=== PATIENT | female | born 1970 | race Caucasian/White ===

== ENCOUNTER 2018-04-25 10:27 | Inpatient (IN) | payer MEDICAID, OTHER ==
[2018-04-25 10:49] VITALS: BMI 20.1
[2018-04-25] MEDS ORDERED: Multivitamin (MVI) 10 ML, Thiamine 100 MG, Folic Acid 1 MG in Sodium Chloride 0.9% 1,00... IV ONE (10:59)
[2018-04-25 11:31] LABS: BASO # 0.02 K/mm3 (0.0-2.0); BASO % 0.3 % (0.0-3.0); GRAN # 5.15 (1.4-6.5); GRAN % 82.5 % (50.0-68.0); HEMOGLOBIN 12.7 g/dL (12.0-16.0); LYMPH # 0.6 (1.2-3.4); LYMPH % 9.8 % (22.0-35.0); MEAN CELL VOLUME 88.1 fl (80.0-105.0); MEAN CORPUSCULAR HEMOGLOBIN 31.6 pg (25.0-35.0); MEAN CORPUSCULAR HGB CONC 35.9 g/dl (31.0-37.0); MEAN PLATELET VOLUME 9.6 fl (7.0-11.0); MONO # 0.5 (0.1-0.6); MONO % 7.4 % (1.0-6.0); RBC 4.02 10^6/uL (3.5-6.1); RED CELL DISTRIBUTION WIDTH 14.3 % (11.5-14.5); WHITE BLOOD COUNT 6.2 10^3/ul (4.5-11.0)
[2018-04-25 11:40] LABS: ALB/GLOB RATIO 1.7 (1.1-1.8); ALBUMIN 4.5 g/dL (3.0-4.8); AMYLASE 53 U/L (35-125); CALCIUM 9.1 mg/dL (8.4-10.5); GFR AFRICAN-AMERICAN > 60; GFR NON-AFRICAN AMERICAN > 60; LIPASE 123 U/L (23-300)
[2018-04-25 11:41] LABS: ALT/SGPT 44 U/L (7-56); AST/SGOT 57 U/L (14-36); BLOOD UREA NITROGEN 12 mg/dL (7-21)
[2018-04-25 12:37] LABS: URINE BILIRUBIN NEGATIVE (NEGATIVE); URINE BLOOD MODERATE (NEGATIVE); URINE COLOR YELLOW (YELLOW); URINE GLUCOSE (UA) NEGATIVE (NEGATIVE); URINE LEUKOCYTE ESTERASE LARGE Leu/uL (NEGATIVE); URINE PROTEIN TRACE mg/dL (<30 mg/dL); URINE UROBILINOGEN 0.2 E.U./dL (<1 E.U./dL)
[2018-04-25 12:38] LABS: URINE APPEARANCE CLEAR (CLEAR)
[2018-04-25] MEDS ORDERED: cefTRIAXone 1 gm 1 GM/100 ML BAG IVPB STA (12:40)
[2018-04-25 12:45] LABS: URINE BACTERIA SMALL (NEG); URINE RBC 0 - 2 /hpf (0-2)
--- NOTE | 2018-04-25 12:49 | ED PDOC ---
Arrival/HPI - General Historian: Patient <Jt Delong A - Last Filed: 04/25/18 12:54> <Guera Welch - Last Filed: 04/25/18 19:38> - General Chief Complaint: Alcohol Ingestion Time Seen by Provider: 04/25/18 10:48 - History of Present Illness Narrative History of Present Illness (Text): 04/25/18 12:45 47yo female with pmhx of alcohol abuse and depression present with complaint of alcohol withdrawal. States she stopped drinking alcohol for a long time, until a family incident pushed her into drinking Vodka straight for 4days. States the last time she drank was yesterday morning. Notes she doesn't like to drink and the feeling it gives, her but the circumstances made her drink. Complaint of multiple episodes of nonbloody/billious vomiting since yesterday. Reports tremors to her had, lightheadedness, chills and diaphoresis since last night. She also reports suprapubic pain, dysuria, urinary frequency for weeks. Denies chest pain, back pain, SOB, headache, focal weakness, any other complaint. (Jt Delong A) Past Medical History - Provider Review Nursing Documentation Reviewed: Yes - Infectious Disease Hx of Infectious Diseases: None - Tetanus Immunization Tetanus Immunization: Unknown - Cardiac Hx Cardiac Disorders: No (denies) Hx Hypertension: No - Pulmonary Hx Tuberculosis: No - Neurological HX Cerebrovascular Accident: No Hx Seizures: No - HEENT Hx HEENT Disorder: (denies) - Renal Hx Kidney Stones: Yes - Hematological/Oncological Hx Cancer: No - Integumentary Other/Comment: Pt.has LT. black eye -resolving,swelling to behind the lt ear with ecchymosis,.5cm in length..1 in width cut noted.ecchymosis above the gnosticist area abrasion .5cm in length .1 in width dry and healing. Lt knee resolving ecchymotic area present. - Musculoskeletal/Rheumatological Hx Falls: No - Gastrointestinal Hx Gastroesophageal Reflux: Yes - Genitourinary/Gynecological Hx Genitourinary Disorders: Yes Hx Sexually Transmitted Diseases: No Other/Comment: endometriosis - Psychiatric Hx Anxiety: Yes Hx Depression: Yes Hx Substance Use: No - Past Surgical History Past Surgical History: No Previous - Suicidal Assessment Feels Threatened In Home Enviroment: No <Jt Delong A - Last Filed: 04/25/18 12:54> Family/Social History - Physician Review Nursing Documentation Reviewed: Yes Family/Social History: Unknown Family HX Smoking Status: Never Smoked Hx Alcohol Use: Yes (binge drinker) Hx Substance Use: No Hx Substance Use Treatment: No <Jt Delong A - Last Filed: 04/25/18 12:54> Allergies/Home Meds <Jt Delong A - Last Filed: 04/25/18 12:54> <YuriGuera - Last Filed: 04/25/18 19:38> Allergies/Adverse Reactions: Allergies prednisone Allergy (Verified 04/25/18 14:40) ITCHING Home Medications: Home Meds Medication Instructions Recorded Confirmed Omeprazole Magnesium [Prilosec Otc] 20 mg PO DAILY 04/25/18 04/25/18 Ubidecarenone [Coq10] 50 mg PO DAILY 04/25/18 04/25/18 Vit A and D3 in Cod Liver Oil [Cod 1 each PO DAILY 04/25/18 04/25/18 Liver Oil Softgel] Review of Systems - Physician Review All systems were reviewed & negative as marked: Yes - Review of Systems Constitutional: Fevers Eyes: Normal ENT: Normal Respiratory: Normal Cardiovascular: Normal Gastrointestinal: Abdominal Pain, Diarrhea, Nausea, Vomiting. absent: Constipation, Hematochezia, Hematemesis Genitourinary Female: Dysuria, Frequency. absent: Hematuria Musculoskeletal: Normal Skin: Normal Neurological: Dizziness Endocrine: Normal Hemo/Lymphatic: Normal Psychiatric: Normal <Jt Delong A - Last Filed: 04/25/18 12:54> Physical Exam Vital Signs Reviewed: Yes Temperature: Afebrile Blood Pressure: Normal Pulse: Regular Respiratory Rate: Normal Appearance: Positive for: Well-Appearing, Non-Toxic, Comfortable, Other ( Tremors of b/l upper extremity noted) Pain Distress: None Mental Status: Positive for: Alert and Oriented X 3 Finger Stick Blood Glucose: 114 - Systems Exam Head: Present: Atraumatic, Normocephalic Pupils: Present: PERRL Extroacular Muscles: Present: EOMI Conjunctiva: Present: Normal Mouth: Present: Moist Mucous Membranes Neck: Present: Normal Range of Motion Respiratory/Chest: Present: Clear to Auscultation, Good Air Exchange. No: Respiratory Distress, Accessory Muscle Use, Wheezes, Decreased Breath Sounds, Rales, Retracting, Rhonchi Cardiovascular: Present: Regular Rate and Rhythm, Normal S1, S2. No: Murmurs Abdomen: Present: Tenderness (suprapubic), Normal Bowel Sounds, Guarding ( Voluntary), Other (soft). No: Distention, Peritoneal Signs, Rebound, McBurney' s Point Tender, Rovsing's Sign Present Back: Present: Normal Inspection. No: CVA Tenderness Upper Extremity: Present: Normal Inspection. No: Cyanosis, Edema Lower Extremity: Present: Normal Inspection. No: Edema Neurological: Present: GCS=15, CN II-XII Intact, Speech Normal Skin: Present: Warm, Dry, Normal Color. No: Rashes Psychiatric: Present: Alert, Oriented x 3, Normal Insight, Normal Concentration <Jt Delong A - Last Filed: 04/25/18 12:54> Vital Signs Temp Pulse Resp BP Pulse Ox 04/25/18 13:37 98 F 85 19 118/72 99 04/25/18 12:12 84 19 114/72 98 04/25/18 10:40 97.9 F 99 H 19 120/74 99 Medical Decision Making <Jt Delong A - Last Filed: 04/25/18 12:54> <Guera Welch - Last Filed: 04/25/18 19:38> ED Course and Treatment: 04/25/18 12:51 PT presented for stated history. She had tremors and appeared anxious on presentation. she was otherwise hemodynamically stable Lab CXR EKG Banana bag, Librium, Ativan was ordered EKG Sinus rhytm with occasion PVC; Prolonged QT @87bpm Lab was noted with hyponatremia and UTI. Hyponatremic likely secondary to alcohol abuse and multiple episodes of vomiting. Rocephin was added for UTI PT will be admitted for alcohol withdrawal syndrome Case was DW Dr. Leyva and he accepted pt for admission. (Jt Delong A) - Lab Interpretations Lab Results: 04/25/18 11:00 04/25/18 11:00 Lab Results 04/25/18 12:10: Urine Color Yellow, Urine Appearance Clear, Urine pH 8.0, Ur Specific [place] 1.010, Urine Protein Trace H, Urine Glucose (UA) Negative, Urine Ketones Negative, Urine Blood Moderate H, Urine Nitrate Negative, Urine Bilirubin Negative, Urine Urobilinogen 0.2, Ur Leukocyte Esterase Large H, Urine RBC 0 - 2, Urine WBC 10 - 15, Ur Epithelial Cells 1 - 3, Urine Bacteria Small 04/25/18 12:10: Urine Opiates Screen Negative, Urine Methadone Screen Negative, Ur Barbiturates Screen Negative, Ur Phencyclidine Scrn Negative, Ur Amphetamines Screen Negative, U Benzodiazepines Scrn Negative, U Oth Cocaine Metabols Negative, U Cannabinoids Screen Negative 04/25/18 11:23: POC Glucose (mg/dL) 114 H 04/25/18 11:00: Alcohol, Quantitative < 10 04/25/18 11:00: Sodium 129 L, Potassium 3.7, Chloride 91 L, Carbon Dioxide 24, Anion Gap 18, BUN 12, Creatinine 0.5 L, Est GFR ( Amer) > 60, Est GFR ( Non-Af Amer) > 60, Random Glucose 122 H, Calcium 9.1, Phosphorus 3.2, Magnesium 1.8, Total Bilirubin 1.3, AST 57 H, ALT 44, Alkaline Phosphatase 92, Total Protein 7.2, Albumin 4.5, Globulin 2.7, Albumin/Globulin Ratio 1.7, Amylase 53, Lipase 123 04/25/18 11:00: WBC 6.2, RBC 4.02, Hgb 12.7, Hct 35.4 L, MCV 88.1, MCH 31.6, MCHC 35.9, RDW 14.3, Plt Count 183, MPV 9.6, Gran % 82.5 H, Lymph % (Auto) 9.8 L , Pierce % (Auto) 7.4 H, Eos % (Auto) 0.0 L, Baso % (Auto) 0.3, Gran # 5.15, Lymph # (Auto) 0.6 L, Pierce # (Auto) 0.5, Eos # (Auto) 0.0, Baso # (Auto) 0.02 - RAD Interpretation Radiology Orders: 04/25/18 10:59 CHEST PORTABLE [RAD] Stat - Medication Orders Current Medication Orders: Chlordiazepoxide (Librium) 25 mg PO Q8H JOEL PRN Reason: Protocol Last Admin: 04/25/18 17:59 Dose: 25 mg Behavioural Document 04/25/18 17:59 CD (Rec: 04/25/18 17:59 CD [id number]) Behavior Behavior for Medication: Continuous pacing/restlessness Re-Assess: Reassess Psych Meds Document 04/25/18 18:58 CD (Rec: 04/25/18 18:58 CD [id number]) Reassess Psych Med Effective Multivitamins/Vitamin C 10 ml/Thiamine HCl 100 mg/ Folic Acid 1 mg/ Sodium Chloride 1,011.2 mls @ 100 mls/hr IV .[id number] ONE Stop: 04/25/18 21:05 Last Admin: 04/25/18 11:37 Dose: 100 mls/hr Ceftriaxone Sodium (Rocephin 1 Gram Ivpb) 1 gm in 100 mls @ 100 mls/hr IVPB DAILY JOEL PRN Reason: Protocol Sodium Chloride (Sodium Chloride 0.9%) 1,000 mls @ 80 mls/hr IV .[id number] JOEL Last Admin: 04/25/18 17:59 Dose: Lorazepam (Ativan) 1 mg IVP Q4H PRN; Protocol PRN Reason: Symptoms of alcohol withdrawl Last Admin: 04/25/18 18:01 Dose: 1 mg IVP Administration Document 04/25/18 18:01 CD (Rec: 04/25/18 18:01 [facility] [id number]) Charges for Administration # of IVP Administrations 1 Behavioural Document 04/25/18 18:01 CD (Rec: 04/25/18 18:01 [facility] [id number]) Behavior Behavior for Medication: Continuous pacing/restlessness Re-Assess: Reassess Psych Meds Document 04/25/18 18:31 CD (Rec: 04/25/18 18:58 [id number] Reass[facility] Psych Med Effective Pantoprazole Sodium (Protonix Inj) 40 mg IVP DAILY [facility] Last Admin: 04/25/18 18:01 Dose: 40 mg IVP Administration Document 04/25/18 18:01 CD (Rec: 04/25/18 18:01 CD [id number]) Charges for Administration # of IVP Administrations 1 Discontinued Medications Chlordiazepoxide (Librium) 25 mg PO STAT STA Stop: 04/25/18 11:00 Last Admin: 04/25/18 12:15 Dose: 25 mg Re-Assess: Reassess Psych Meds Document 04/25/18 13:15 CD (Rec: 04/25/18 14:54 CD [id number]) Reassess Psych Med Effective Ceftriaxone Sodium (Rocephin 1 Gram Ivpb) 1 gm in 100 mls @ 200 mls/hr IVPB STAT STA PRN Reason: Protocol Stop: 04/25/18 13:09 Last Admin: 04/25/18 13:14 Dose: 200 mls/hr eMAR Start Stop Document 04/25/18 13:14 GMI (Rec: 04/25/18 13:15 GMI [id number]) Intravenous Solution Start Date 04/25/18 Start Time 13:14 End Date 04/25/18 End time 13:50 Total Infusion Time 36 Lorazepam (Ativan) 2 mg PO ONCE ONE Stop: 04/25/18 11:00 Last Admin: 04/25/18 12:15 Dose: 2 mg Re-Assess: Reassess Psych Meds Document 04/25/18 13:15 CD (Rec: 04/25/18 14:54 CD [id number]) Reassess Psych Med Effective Ondansetron HCl (Zofran Inj) 4 mg IVP STAT STA Stop: 04/25/18 11:01 Last Admin: 04/25/18 11:25 Dose: 4 mg IVP Administration Document 04/25/18 11:25 GMI (Rec: 04/25/18 11:25 GMI [id number]) Charges for Administration # of IVP Administrations 1 Pneumococcal Polyvalent Vaccine (Pneumovax 23 Vaccine) 0.5 ml IM .ONCE ONE Stop: 04/25/18 16:33 - PA / [employer] / Resident Statement / has reviewed & agrees with the documentation as recorded. <Guera Welch - Last Filed: 04/25/18 19:38> Disposition/Present on Arrival - Present on Arrival Any Indicators Present on Arrival: No History of DVT/PE: No History of Uncontrolled Diabetes: No Urinary Catheter: No History of Decub. Ulcer: No History Surgical Site Infection Following: None - Disposition Have Diagnosis and Disposition been Completed?: Yes Disposition Time: 12:40 Patient Plan: Admission <Jt Delong - Last Filed: 04/25/18 12:54> <Guera Welch - Last Filed: 04/25/18 19:38> - Disposition Diagnosis: Alcohol withdrawal syndrome, UTI (urinary tract infection), Hyponatremia Disposition: HOSPITALIZED Condition: FAIR
[2018-04-25 13:07] LABS: BARBITURATES, UR NEGATIVE (NEGATIVE); BENZODIAZEPINES, UR NEGATIVE (NEGATIVE); OPIATES, UR NEGATIVE (NEGATIVE); PHENCYCLIDINE, UR NEGATIVE (NEGATIVE)
--- NOTE | 2018-04-25 13:20 | RAD ---
Date of service: 04/25/2018 HISTORY: admission COMPARISON: 11/28/2015 FINDINGS: LUNGS: No active pulmonary disease. PLEURA: No significant pleural effusion identified, no pneumothorax apparent. CARDIOVASCULAR: Normal. OSSEOUS STRUCTURES: No significant abnormalities. VISUALIZED UPPER ABDOMEN: Normal. OTHER FINDINGS: None. IMPRESSION: No active disease.
--- NOTE | 2018-04-25 14:35 | CP.PCM.HP ---
<Rubens Rivera - Last Filed: 04/25/18 15:08> History of Present Illness - History of Present Illness History of Present Illness: cc: I was having alcohol withdrawals HPI: Mrs Weber is a 47 year old female with a PMHx of alcohol use disorder, kidney stone, who presents with alcohol withdrawal symptoms. On morning of presentation she had multiple episodes of non-bloody/non-bilious emesis, nausea , and tremors. Her last drink was 36 hours prior to presentation. Patient has experienced alcohol withdrawal symptoms years ago from prior alcohol abuse thus knew of worsening impending symptoms hence decided to come to ED. She stated she has been sober for the past 2 years and that 5 days ago she drove by a liquor store with a relative and decided to purchase a bottle of vodka. In the ensuing 4 days she drank a 5th of vodka and 2 pints of vodka. Additionally she complained of urinary symptoms including burning as well as suprapubic discomfort. She denied seizure, right upper quadrant pain, bleeding, cough, shortness of breath, chest pain. PMHx: alcohol use disorder, kidney stone PSHx: denies Allergies: prednisone Home Meds: denies FamHx: mother with diabetes and hypertension; father from "drinking problems" SocialHx: hx of alcohol use disorder - sober for 2 years until now; denies tobacco or illicit drug hx; homemakers; lives at home with Present on Admission - Present on Admission Any Indicators Present on Admission: No Review of Systems - Review of Systems All systems: reviewed and no additional remarkable complaints except (as stated in hpi) - Constitutional Constitutional: absent: Chills, Fever - Cardiovascular Cardiovascular: absent: Chest Pain - Respiratory Respiratory: absent: Hemoptysis Past Patient History - Infectious Disease Hx of Infectious Diseases: None - Tetanus Immunizations Tetanus Immunization: Unknown - Past Social History Smoking Status: Never Smoked - CARDIAC Hx Cardiac Disorders: No (denies) Hx Hypertension: No - PULMONARY Hx Tuberculosis: No - NEUROLOGICAL HX Cerebrovascular Accident: No Hx Seizures: No - HEENT Hx HEENT Problems: (denies) - RENAL Hx Kidney Stones: Yes - HEMATOLOGICAL/ONCOLOGICAL Hx Cancer: No - INTEGUMENTARY Other/Comment: Pt.has LT. black eye -resolving,swelling to behind the lt ear with ecchymosis,.5cm in length..1 in width cut noted.ecchymosis above the restorationist area abrasion .5cm in length .1 in width dry and healing. Lt knee resolving ecchymotic area present. - MUSCULOSKELETAL/RHEUMATOLOGICAL Hx Falls: No - GASTROINTESTINAL Hx Gastroesophageal Reflux: Yes - GENITOURINARY/GYNECOLOGICAL Hx Genitourinary Disorders: Yes Hx Sexually Transmitted Disorders: No Other/Comment: endometriosis - PSYCHIATRIC Hx Anxiety: Yes Hx Depression: Yes Hx Substance Use: No - SURGICAL HISTORY Hx Surgeries: No Meds Allergies/Adverse Reactions: Allergies Allergy/AdvReac Type Severity Reaction Status Date / Time prednisone Allergy ITCHING Verified 04/25/18 14:40 Physical Exam - Constitutional Appears: Well, Non-toxic, No Acute Distress - Head Exam Head Exam: ATRAUMATIC, NORMAL INSPECTION - Eye Exam Eye Exam: EOMI Pupil Exam: PERRL - ENT Exam ENT Exam: Mucous Membranes Dry - Neck Exam Neck exam: Positive for: Normal Inspection. Negative for: Tenderness - Respiratory Exam Respiratory Exam: Clear to Auscultation Bilateral, NORMAL BREATHING PATTERN. absent: Rales, Rhonchi, Wheezes - Cardiovascular Exam Cardiovascular Exam: Tachycardia, REGULAR RHYTHM, +S1, +S2. absent: Bradycardia , JVD, Systolic Murmur - GI/Abdominal Exam GI & Abdominal Exam: Normal Bowel Sounds, Soft. absent: Distended, Firm, Guarding, Hernia, Tenderness - Extremities Exam Extremities exam: Positive for: normal capillary refill, normal inspection, pedal pulses present. Negative for: calf tenderness, pedal edema - Neurological Exam Neurological exam: Alert, CN II-XII Intact, Oriented x3 - Skin Skin Exam: Normal Color, Warm Results - Vital Signs Recent Vital Signs: Last Vital Signs Temp 98 F 04/25/18 13:37 Pulse 85 04/25/18 13:37 Resp 19 04/25/18 13:37 BP 118/72 04/25/18 13:37 Pulse Ox 99 04/25/18 13:37 - Labs Result Diagrams: 04/25/18 11:00 04/25/18 11:00 Assessment & Plan - Assessment and Plan (Free Text) Assessment: 47 year old female with a PMHx of alcohol use disorder, kidney stones presents with alcohol withdrawal symptoms (nausea, vomiting, tremors) after 4 days of continuous vodka drinking. Additionally also complained of dysuria. Alcohol Withdrawal -last drink 36 hours prior to presentation; 2 years sober prior to now -alcohol level <10 however likely fast metabolizer and last drink 36 hours prior to arrival; otherwise UDS negative; lipase normal -ciwa q4h, seizure precautions, neuro checks q4h, monitor on telemetry -banana bag started, continue with normal saline at 80cc/hr -librium taper, start with 25mg po q8h and cover with ativan 1mg q4h prn for alcohol withdrawal symptoms -hold zofran due to prolonged Qt (512) -keep npo except medications for now until alcohol withdrawal symptoms improve UTI -dysuria with mild suprapubic tenderness; UA showed leukocytes esterase and moderate blood -rocephin 1g q24h (received 1 dose in ED) -f/u urine cx; will order repeat UA and/or UrCx later to ascertain resolution Hypovolemic Hyponatremia -likely 2/2 to vomiting; no neurologic changes present -sodium on admission 129 -banana bag started in normal saline at 100cc/hr, after this bag finishes we'll continue hydration at 80cc/hr Prophylaxis -SCDs -GI prophylaxis with Protonix 40mg iv qd -NPO for now until alcohol withdrawal symptoms improve <Fransisco Leyva - Last Filed: 04/25/18 17:31> Results - Vital Signs Recent Vital Signs: Last Vital Signs Temp 98 F 04/25/18 15:56 Pulse 86 04/25/18 15:56 Resp 19 04/25/18 15:56 BP 118/72 04/25/18 15:56 Pulse Ox 98 04/25/18 15:00 - Labs Result Diagrams: 04/25/18 11:00 04/25/18 11:00 Attending/Attestation - Attestation I have personally seen and examined this patient.: Yes I have fully participated in the care of the patient.: Yes I have reviewed all pertinent clinical information: Yes Notes (Text): 04/25/18 17:24 47 year old female with past medical history of alcohol abuse who presented with nausea, vomiting and tremors. She is admitted for alcohol withdrawal. Continue with banana bag. Continue with librium and ativan prn. She was counselled on alcohol cessation. 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 Will start antibiotics for UTI. Ucx is pending. Fransisco Leyva MD Hospitalist.
[2018-04-25] MEDS ORDERED: Pneumococcal 23-Valent Vaccine IM ONE (16:32)
[2018-04-25] MEDS: Sodium Chloride 0.9% 1,000 ML IV SCH ×2 (17:59→23:45)
[2018-04-26] MEDS: Sodium Chloride 0.9% 1,000 ML IV SCH (03:00)
--- NOTE | 2018-04-26 05:25 | CARD ---
APPROVED REPORT Date of service: 04/25/2018 EKG Measurement Heart [id number] <Conclusion> Sinus rhythm with occasional premature ventricular complexes Prolonged QT Abnormal ECG
[2018-04-26 06:02] VITALS: RESP 20; TEMP 98.6; O2SAT 95
[2018-04-26 08:08] LABS: BASO # 0.02 K/mm3 (0.0-2.0); BASO % 0.4 % (0.0-3.0); EOS # 0.2 (0.0-0.7); EOS % 3.8 % (1.5-5.0); GRAN # 2.81 (1.4-6.5); GRAN % 63.2 % (50.0-68.0); LYMPH # 1.1 (1.2-3.4); LYMPH % 23.8 % (22.0-35.0); MEAN CELL VOLUME 90.4 fl (80.0-105.0); MEAN CORPUSCULAR HEMOGLOBIN 31.3 pg (25.0-35.0); MEAN CORPUSCULAR HGB CONC 34.6 g/dl (31.0-37.0); MEAN PLATELET VOLUME 9.1 fl (7.0-11.0); MONO # 0.4 (0.1-0.6); MONO % 8.8 % (1.0-6.0); RBC 3.84 10^6/uL (3.5-6.1); RED CELL DISTRIBUTION WIDTH 14.2 % (11.5-14.5); WHITE BLOOD COUNT 4.5 10^3/ul (4.5-11.0)
[2018-04-26 08:35] LABS: ALB/GLOB RATIO 1.3 (1.1-1.8); ALBUMIN 3.4 g/dL (3.0-4.8); ALT/SGPT 35 U/L (7-56); AST/SGOT 45 U/L (14-36); BLOOD UREA NITROGEN 11 mg/dL (7-21); CALCIUM 7.9 mg/dL (8.4-10.5); GFR AFRICAN-AMERICAN > 60; GFR NON-AFRICAN AMERICAN > 60
[2018-04-26 09:26] VITALS: BP 114/79; PULSE 80
[2018-04-26] MEDS ORDERED: cefTRIAXone 1 gm 1 GM/100 ML BAG IVPB SCH (10:00)
[2018-04-26] MEDS ORDERED: Sodium Chloride 0.9% 1,000 ML IV SCH (10:58)
--- NOTE | 2018-04-26 11:05 | CP.PCM.PN ---
<Rubens Rivera - Last Filed: 04/26/18 10:59> Subjective - Date & Time of Evaluation Date of Evaluation: 04/26/18 Time of Evaluation: 10:59 - Subjective Subjective: PGY-[address] Leyva. No acute events noted overnight. Patient stated she felt much better today. She denied nausea, emesis, tremors, anxiety. She complained of feeling drowsy. She still complained of burning on urination. She was advised to stop drinking, she said she will attempt. Objective - Vital Signs/Intake and Output Vital Signs (last 24 hours): Temp Pulse Resp BP Pulse Ox 98.6 F 80 20 114/79 95 04/26/18 06:00 04/26/18 09:25 04/26/18 06:00 04/26/18 09:25 04/26/18 06:00 Intake and Output: 04/26/18 04/26/18 06:59 18:59 Intake Total 1420 Output Total 2 Balance 1418 - Medications Medications: Current Medications Chlordiazepoxide (Librium) 25 mg PO Q12H JOEL PRN Reason: Protocol Ceftriaxone Sodium (Rocephin 1 Gram Ivpb) 1 gm in 100 mls @ 100 mls/hr IVPB DAILY JOEL PRN Reason: Protocol Last Admin: 04/26/18 09:19 Dose: 100 mls/hr Sodium Chloride (Sodium Chloride 0.9%) 1,000 mls @ 60 mls/hr IV .[id number] JOEL Lorazepam (Ativan) 1 mg IVP Q4H PRN; Protocol PRN Reason: Symptoms of alcohol withdrawl Last Admin: 04/25/18 23:55 Dose: 1 mg Pantoprazole Sodium (Protonix Inj) 40 mg IVP DAILY [facility] Last Admin: 04/26/18 09:19 Dose: 40 mg - Labs Labs: 04/26/18 07:55 04/26/18 07:55 - Additional Findings Additional findings: - Constitutional Appears: Well, Non-toxic, No Acute Distress - Head Exam Head Exam: ATRAUMATIC, NORMAL INSPECTION - Eye Exam Eye Exam: EOMI Pupil Exam: PERRL - ENT Exam ENT Exam: Mucous Membranes Dry - Neck Exam Neck exam: Positive for: Normal Inspection. Negative for: Tenderness - Respiratory Exam Respiratory Exam: Clear to Auscultation Bilateral, NORMAL BREATHING PATTERN. absent: Rales, Rhonchi, Wheezes - Cardiovascular Exam Cardiovascular Exam: regular rate, REGULAR RHYTHM, +S1, +S2. absent: Bradycardia, JVD, Systolic Murmur - GI/Abdominal Exam GI & Abdominal Exam: Normal Bowel Sounds, Soft. absent: Distended, Firm, Guarding, Hernia, Tenderness - Extremities Exam Extremities exam: Positive for: normal capillary refill, normal inspection, pedal pulses present. Negative for: calf tenderness, pedal edema - Neurological Exam Neurological exam: Alert, CN II-XII Intact, Oriented x3 - Skin Skin Exam: Normal Color, Warm Assessment and Plan - Assessment and Plan (Free Text) Assessment: 47 year old female with a PMHx of alcohol use disorder, kidney stones presents with alcohol withdrawal symptoms (nausea, vomiting, tremors) after 4 days of continuous vodka drinking. Additionally also complained of dysuria. Alcohol Withdrawal -last drink 36 hours prior to presentation; 2 years sober prior to this admission -alcohol level <10 however likely fast metabolizer and last drink 36 hours prior to arrival; otherwise UDS negative; lipase normal -ciwa q4h, seizure precautions, neuro checks q4h, monitor on telemetry -banana bag given, now on normal saline at 60cc/hr -librium taper, started with 25mg po q8h and now 25mg po q12h; cover with ativan 1mg q4h prn for breakthrough alcohol withdrawal symptoms -hold zofran due to prolonged Qt (512) UTI -dysuria with mild suprapubic tenderness; UA showed leukocytes esterase and moderate blood -rocephin 1g q24h (received 1 dose in ED) -f/u urine cx Hypovolemic Hyponatremia, Resolved -likely 2/2 to vomiting; no neurologic changes present -sodium on admission 129 -currently on normal saline 60cc/hr Prolonged Qt -hold zofran due to prolonged Qt (512) Prophylaxis -SCDs -GI prophylaxis with Protonix 40mg iv qd -Regular diet <Fransisco Leyva - Last Filed: 04/26/18 12:35> Objective - Vital Signs/Intake and Output Vital Signs (last 24 hours): Temp Pulse Resp BP Pulse Ox 98.6 F 80 20 114/79 95 04/26/18 06:00 04/26/18 09:25 04/26/18 06:00 04/26/18 09:25 04/26/18 06:00 Intake and Output: 04/26/18 04/26/18 06:59 18:59 Intake Total 1420 Output Total 2 Balance 1418 - Medications Medications: Current Medications Chlordiazepoxide (Librium) 25 mg PO Q12H JOEL PRN Reason: Protocol Ceftriaxone Sodium (Rocephin 1 Gram Ivpb) 1 gm in 100 mls @ 100 mls/hr IVPB DAILY JOEL PRN Reason: Protocol Last Admin: 04/26/18 09:19 Dose: 100 mls/hr Sodium Chloride (Sodium Chloride 0.9%) 1,000 mls @ 60 mls/hr IV .[id number] JOEL Potassium Chloride (Potassium Chloride 20 Meq/100 Ml) 20 meq in 100 mls @ 50 mls/hr IVPB Q2H JOEL Stop: 04/26/18 16:44 Lorazepam (Ativan) 1 mg IVP Q4H PRN; Protocol PRN Reason: Symptoms of alcohol withdrawl Last Admin: 04/25/18 23:55 Dose: 1 mg Pantoprazole Sodium (Protonix Inj) 40 mg IVP DAILY JOEL Last Admin: 04/26/18 09:19 Dose: 40 mg - Labs Labs: 04/26/18 07:55 04/26/18 07:55 Attending/Attestation - Attestation I have personally seen and examined this patient.: Yes I have fully participated in the care of the patient.: Yes I have reviewed all pertinent clinical information, including history, physical exam and plan: Yes Notes (Text): 04/26/18 47 year old female with past medical history of alcohol abuse who presented with alcohol withdrawal. She received banana bag. Continue with multivitamin, folic acid and thiamine. Continue with librium taper and ativan prn for withdrawal symptoms. She was counselled on alcohol abstinence. supervisor hand workers evaluation requested. Continue with ceftriaxone for UTI while awaiting urine culture. Will replete and repeat potassium. Fransisco Leyva MD Hospitalist.
[2018-04-26] MEDS ORDERED: Potassium Chloride 20 mEq ER Tab PO ONE (12:41)
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
[2018-04-27] MEDS ORDERED: Multivitamin Therapeutic Tab PO SCH (08:00)
== END 2018-04-26 14:18 | disposition left against medical advice (07) | DRG 749 ==
LOC: ED 10:27 → ERH 12:43 → 2RNO 15:10
PROVIDERS: ADMIT Internal Medicine; ATTEND Internal Medicine
DX: F10.239 Alcohol dependence with withdrawal, unspecified (principal); N39.0 Urinary tract infection, site not specified; E87.1 Hypo-osmolality and hyponatremia; Y90.0 Blood alcohol level of less than 20 mg/100 ml; K21.9 Gastro-esophageal reflux disease without esophagitis; Z87.442 Personal history of urinary calculi